=== PATIENT | male | born 1970 | race Caucasian/White ===

== ENCOUNTER 2021-10-06 17:31 | Emergency (ER) | payer SELFPAY ==
[2021-10-06 17:57] VITALS: BP 134/82
--- NOTE | 2021-10-06 18:57 | XRay Report ---
XR chest routine 2V INDICATION / CLINICAL INFORMATION: sob. COMPARISON: None available. FINDINGS: SUPPORT DEVICES: None. HEART /PULMONARY VASCULATURE: No significant abnormality. LUNGS / PLEURA: There is elevation of the right hemidiaphragm. Diminished lung volumes without focal airspace consolidation. No sizable pleural effusion. ADDITIONAL FINDINGS: No significant additional findings. IMPRESSION: 1. No acute findings. Signer Name: Kamaljit Mendoza MD Signed: 10/06/2021 6:53 PM Workstation Name: [id number]
--- NOTE | 2021-10-07 00:10 | Emergency Department Report ---
ED General Adult HPI - General Chief complaint: Dyspnea/Respdistress Stated complaint: SOB Time Seen by Provider: 10/06/21 23:28 Source: patient Mode of arrival: Ambulatory Limitations: No Limitations - History of Present Illness Initial comments: 51-year-old male presents emerged department complaining of 4 to 5-day history of coryza nasal congestion muscle aches fatigue and weakness which she slowly started to see improvement and then 3 days ago began having cough and congestion of a chronic pain tenuous/repetitive nature nonproductive in nature. Occasional shortness of breath but no chest pain. Reports no hemoptysis no hematemesis hematochezia -: Gradual, days(s) (3) Radiation: non-radiation Quality: dull Consistency: constant Improves with: none Worsens with: none Associated Symptoms: chest pain, cough. denies: loss of appetite, rash, syncope, weakness Treatments Prior to Arrival: none - Related Data Previous Rx's Medication Instructions Recorded Last Taken Type Albuterol Mdi (or & Nicu Only) 1 puff IH Q4-6H PRN #1 inha 10/07/21 Unknown Rx [ProAir HFA Inhaler] Azithromycin [Zithromax] 500 mg PO QDAY #3 tablet 10/07/21 Unknown Rx Benzonatate [Tessalon Perles] 100 mg PO Q8HR #20 capsule 10/07/21 Unknown Rx Allergies Allergy/AdvReac Type Severity Reaction Status Date / Time No Known Allergies Allergy Verified 10/06/21 17:55 ED Review of Systems ROS: Stated complaint: SOB Other details as noted in HPI Comment: All other systems reviewed and negative ED Past Medical Hx - Past Medical History Previous Medical History?: No - Surgical History Past Surgical History?: No - Medications Home Medications: Home Medications Medication Instructions Recorded Confirmed Last Taken Type Albuterol Mdi (or & Nicu Only) 1 puff IH Q4-6H PRN #1 inha 10/07/21 Unknown Rx [ProAir HFA Inhaler] Azithromycin [Zithromax] 500 mg PO QDAY #3 tablet 10/07/21 Unknown Rx Benzonatate [Tessalon Perles] 100 mg PO Q8HR #20 capsule 10/07/21 Unknown Rx ED Physical Exam - General Limitations: No Limitations General appearance: alert, in no apparent distress - Head Head exam: Present: atraumatic, normocephalic - Eye Eye exam: Present: normal appearance, PERRL, EOMI - ENT ENT exam: Present: normal exam, mucous membranes moist, other (Nasal congestion is noted) - Neck Neck exam: Present: normal inspection, full ROM - Respiratory Respiratory exam: Present: normal lung sounds bilaterally, rhonchi. Absent: respiratory distress - Cardiovascular Cardiovascular Exam: Present: regular rate, normal rhythm. Absent: systolic murmur, diastolic murmur, rubs, gallop - GI/Abdominal GI/Abdominal exam: Present: soft, normal bowel sounds - Rectal Rectal exam: Present: deferred - Extremities Exam Extremities exam: Present: normal inspection - Back Exam Back exam: Present: normal inspection - Neurological Exam Neurological exam: Present: alert, oriented X3 - Psychiatric Psychiatric exam: Present: normal affect, normal mood - Skin Skin exam: Present: warm, dry, intact, normal color. Absent: rash ED Course Vital Signs 10/06/21 17:55 Temperature 97.5 F L Pulse Rate 97 H Respiratory 16 Rate Blood Pressure 134/82 [Left] O2 Sat by Pulse 97 Oximetry ED Medical Decision Making - Radiology Data Radiology results: report reviewed [facility] [address] [place] [address] XRay Report Signed Patient: JIMY POTTS MR#: [id number] : 1970 Acct:[id number] Age/Sex: 51 / M ADM Date: 10/06/21 Loc: ED Attending Dr: Ordering Physician: LUIS CLAYTON MD Date of Service: 10/06/21 Procedure(s): XR chest routine 2V Accession Number(s): [id number] cc: LUIS CLAYTON MD Fluoro Time In Minutes: XR chest routine 2V INDICATION / CLINICAL INFORMATION: sob. COMPARISON: None available. FINDINGS: SUPPORT DEVICES: None. HEART /PULMONARY VASCULATURE: No significant abnormality. LUNGS / PLEURA: There is elevation of the right hemidiaphragm. Diminished lung volumes without focal airspace consolidation. No sizable pleural effusion. ADDITIONAL FINDINGS: No significant additional findings. IMPRESSION: 1. No acute findings. Signer Name: Ignacia Mendoza MD Signed: 10/06/2021 6:53 PM Workstation Name: [id number] Transcribed By: SERG Dictated By: IGNACIA MENDOZA MD Electronically Authenticated By: IGNACIA MENDOZA MD Signed Date/Time: 10/06/211852 DD/ 51 TD/TT: - Medical Decision Making This patient presents with acute cough, most consistent with bronchitis. Differential diagnosis includes hyperreactive airway disease, COVID-19 chronic cough, acid reflux, pneumonia, postnasal drip. Presentation not consistent with acute bacterial pneumonia, influenza, asthma, transient airway hyperresponsiveness. Presentation not consistent with chronic causes of cough (including GERD, asthma, postnasal discharge, medication side effect, CHF, lung cancer or mass). Chest x-ray normal and maintains normal saturation with ambulation Plan: , supportive care, reassess This patient presents to the emergency department with fever and lower respiratory symptoms concerning for viral syndrome including flu and COVID-19. Patient has suspicion and is for COVID-19 infection. Differential diagnosis includes other viral causes of lower respiratory symptoms, pneumonia, asthma, bronchitis. Patient is well-appearing with acceptable vitals, lacks comorbidities admission and a reassuring physical examination and is safe to be discharged home nasal swab for COVID testing is recommended. Provide strict return precautions and instructions on self isolation/quarantine and anticipatory guidance. Critical care attestation.: If time is entered above; I have spent that time in minutes in the direct care of this critically ill patient, excluding procedure time. ED Disposition Clinical Impression: Cough Disposition: 01 HOME / SELF CARE / HOMELESS Is pt being admited?: No Does the pt Need Aspirin: No Condition: Stable Instructions: Cool Mist Vaporizer, Cough, Adult Referrals: [facility] [Primary Care Provider] - 3-5 Days [facility] [Provider Group] - 3-5 Days
== END 2021-10-07 00:39 | disposition home or self-care (01) ==
LOC: ED 17:31
DX: R05.9 Cough, unspecified (principal); R09.81 Nasal congestion; R00.2 Palpitations; R53.83 Other fatigue
CPT/HCPCS: 71046; 99283